=== PATIENT | female | born 1955 | race Caucasian/White ===

== ENCOUNTER 2023-11-13 13:17 | Emergency (ER) | payer OTHER, MEDICARE, BC ==
[~2023-11-13] VITALS: Ht 160 cm; Wt 46.5 kg
[~2023-11-13 13:17] MED LIST: LO-DOSE ASPIRIN81 MG PO; NORVASC5 MG PO
[2023-11-13] MEDS ORDERED: HYDROCODON-ACE1 EA10 PO (16:25)
[2023-11-13 16:57] VITALS: BP 142/85
== END 2023-11-13 16:58 | disposition home or self-care (01) ==
LOC: ED 13:17
DX: S72.112A Displaced fracture of greater trochanter of left femur, initial encounter for closed fracture (principal); S72.142A Displaced intertrochanteric fracture of left femur, initial encounter for closed fracture; R51.9 Headache, unspecified; G35 Multiple sclerosis; I10 Essential (primary) hypertension; W01.0XXA Fall on same level from slipping, tripping and stumbling without subsequent striking against object, initial encounter; Y92.22 Religious institution as the place of occurrence of the external cause; Z88.0 Allergy status to penicillin; Z79.82 Long term (current) use of aspirin; Z79.899 Other long term (current) drug therapy
CPT/HCPCS: 70450; 73502; 73700